=== PATIENT | male | born 1950 | race Caucasian/White ===

== ENCOUNTER → 2020-03-05 | Outpatient (CLI) | payer OTHER | END | disposition home or self-care (01) | LOC: RAH 10:00 | PROVIDERS: ATTEND Family Medicine | DX: M25.261 Flail joint, right knee (principal); M85.88 Other specified disorders of bone density and structure, other site; Z96.651 Presence of right artificial knee joint | CPT/HCPCS: 73700 ==

== ENCOUNTER → 2020-05-16 | Outpatient (CLI) | payer OTHER ==
[~2020-05-16] MED LIST: SILVER NITRATE APPLICATOR 1 SWAB TP ONE
== END | disposition home or self-care (01) ==
LOC: WHH 13:39
PROVIDERS: ATTEND Specialist
DX: L02.415 Cutaneous abscess of right lower limb (principal); I10 Essential (primary) hypertension; I48.91 Unspecified atrial fibrillation; E78.5 Hyperlipidemia, unspecified; M46.90 Unspecified inflammatory spondylopathy, site unspecified; K21.9 Gastro-esophageal reflux disease without esophagitis; Z87.891 Personal history of nicotine dependence; Z96.651 Presence of right artificial knee joint
CPT/HCPCS: 17250; 87070; 87077; 87186

== ENCOUNTER → 2020-05-30 | Outpatient (CLI) | payer OTHER | END | disposition home or self-care (01) | LOC: WHH 13:42 | PROVIDERS: ATTEND Specialist | DX: L02.415 Cutaneous abscess of right lower limb (principal); I10 Essential (primary) hypertension; I48.91 Unspecified atrial fibrillation; E78.5 Hyperlipidemia, unspecified; M46.90 Unspecified inflammatory spondylopathy, site unspecified; K21.9 Gastro-esophageal reflux disease without esophagitis; Z87.891 Personal history of nicotine dependence; Z96.651 Presence of right artificial knee joint | CPT/HCPCS: G0463 ==

== ENCOUNTER 2020-06-15 13:00 | Inpatient (IN) | payer OTHER ==
[~2020-06-15] VITALS: Ht 170.2 cm; Wt 71.4 kg
[2020-06-15 10:02] LABS: EOSINOPHILS % (AUTO) 2.8 % (0.0-8.0); HEMATOCRIT 35.1 % (42-54); LYMPHOCYTES % (AUTO) 22.7 % (21.0-51.0); MEAN CORPUSCULAR HEMOGLOBIN 23.6 pg (27.0-33.0); MEAN CORPUSCULAR HGB CONC 29.9 g/dL (32.0-36.0); MEAN CORPUSCULAR VOLUME 78.9 fL (79-99); MONOCYTES % (AUTO) 11.5 % (3.0-13.0); NEUTROPHILS % (AUTO) 61.5 % (40.0-77.0); PLATELET COUNT (AUTO) 313 K/uL (130-400); RED BLOOD CELL COUNT(AUTO) 4.45 MIL/uL (4.50-6.20); RED CELL DISTRIBUTION WIDTH 17.5 % (11.0-15.5); WHITE BLOOD COUNT (AUTO) 10.1 K/uL (4.8-10.8)
[2020-06-15 10:11] LABS: CREATININE 1.4 mg/dL (0.5-1.5); POTASSIUM 4.4 mmol/L (3.5-5.1)
[2020-06-15 13:32] VITALS: BP 189/107
[2020-06-15] MEDS ORDERED: APIX5TAB PO (15:56)
[2020-06-15] MEDS ORDERED: METO25TA6 PO (15:56)
[2020-06-15] MEDS ORDERED: LORA0.5T83 PO (16:04)
[2020-06-15] MEDS ORDERED: ISOS30TA92 PO (16:04)
[2020-06-15] MEDS ORDERED: DULO30CA52 PO (16:04)
[2020-06-15] MEDS ORDERED: NAPR-1023 PO (16:04)
[2020-06-15] MEDS ORDERED: OMEP40CA21 PO (16:04)
[2020-06-15] MEDS ORDERED: MULT-1203 PO (16:04)
[2020-06-15] MEDS ORDERED: TAMS-1 PO (16:04)
[2020-06-15] MEDS ORDERED: BUPR200T34 PO (16:04)
[2020-06-15] MEDS ORDERED: FERR-82 PO (16:04)
[2020-06-18] VITALS (24 sets, daily range): BP systolic 109–158; BP diastolic 71–103
[2020-06-18] MEDS ORDERED: CEFAZOLIN SODIUM 1 GM VIAL IVP SCH (05:00)
[2020-06-18] MEDS ORDERED: LACTATED RINGERS 1000ML 1,000 ML IV ONE (09:33)
[2020-06-18] MEDS ORDERED: 0.9%NACL 10ML VIAL ONE (09:45)
[2020-06-18] MEDS ORDERED: LIDOCAINE PF 100MG/5ML (2%) SYRINGE 5ML ONE (10:51)
[2020-06-18] MEDS ORDERED: MIDAZOLAM HCL 1 MG/ML 2ML VIAL ONE (10:51)
[2020-06-18] MEDS ORDERED: SUCCINYLCHOLINE CHLORIDE 20 MG/ML 10 ML VIAL ONE (10:51)
[2020-06-18] MEDS ORDERED: FENTANYL CITRATE PF 50 MCG/1 ML 2ML VIAL ONE (10:52)
[2020-06-18] MEDS ORDERED: ROCURONIUM 10MG/1ML SYR 10 MG/ML ML ONE (10:52)
[2020-06-18] MEDS ORDERED: PROPOFOL 10 MG/ML 20ML VIAL IV ONE (10:52)
[2020-06-18] MEDS ORDERED: VANCOMYCIN 1G/250ML KIT 250 ML IV ONE (11:29)
[2020-06-18] MEDS ORDERED: VANCOMYCIN 1G VIAL ONE ×3 (11:44→13:14)
[2020-06-18] MEDS ORDERED: GLYCOPYRROLATE 1 MG/5 ML SYRINGE ONE (12:16)
[2020-06-18] MEDS ORDERED: ONDANSETRON 4MG INJ ONE (12:17)
[2020-06-18] MEDS ORDERED: MEPERIDINE-PF 25 MG/ML SYG ONE ×2 (13:43→14:14)
[2020-06-18] MEDS ORDERED: MORPHINE 2 MG SYG ONE (14:00)
[2020-06-18 14:29] LABS: INR 1.12 (0.85-1.15); PROTHROMBIN TIME 12.1 SEC (9.6-11.6)
[2020-06-18] MEDS: 0.9%NACL 1000ML 1,000 ML IV SCH ×2 (14:30→22:31)
[2020-06-18] MEDS ORDERED: KETOROLAC 15MG/ML VIAL (15MG/ML) IV PRN (14:30)
[2020-06-18] MEDS ORDERED: OXYCODONE HCL 5 MG TAB PO PRN (14:30)
[2020-06-18] MEDS: ACETAMINOPHEN 500 MG TABLET PO SCH ×2 (14:30→22:30)
[2020-06-18] MEDS ORDERED: LIDOCAINE HCL-MPF 1% 2ML VIAL IV PRN (14:30)
[2020-06-18] MEDS ORDERED: ONDANSETRON 4MG INJ IVP PRN (14:30)
[2020-06-18] MEDS ORDERED: DiphenhydrAMINE HCL 50 MG/ML VIAL IVP PRN (14:30)
[2020-06-18] MEDS ORDERED: CALCIUM CARB 500MG PO PRN (14:30)
[2020-06-18] MEDS ORDERED: FERROUS FUMARATE 324 MG TABLET PO PRN (14:30)
[2020-06-18] MEDS ORDERED: POTASSIUM CHLORIDE 10% ELIXIR 20 MEQ/15 ML UDCUP PO PRN (14:30)
[2020-06-18] MEDS ORDERED: KCL 20 MEQ ERTAB PO PRN (14:30)
[2020-06-18] MEDS ORDERED: TRAMADOL HCL 50 MG TABLET PO PRN (14:30)
[2020-06-18] MEDS ORDERED: POTASSIUM CHLORIDE 20MEQ/100ML 100 ML IV PRN (14:30)
[2020-06-18] MEDS ORDERED: NAPROXEN 500 MG TABLET PO SCH (16:00)
[2020-06-18] MEDS ORDERED: VANCOMYCIN PROTOCOL PER PHARMACY IV SCH (18:00)
[2020-06-18] MEDS: OXYCODONE HCL 5 MG TAB PO PRN ×2 (18:05→23:30)
[2020-06-18] MEDS: VANCOMYCIN 1G/250ML KIT 250 ML IV SCH (20:52)
[2020-06-18] MEDS: PREGABALIN 25 MG CAP PO SCH (20:52)
[2020-06-18] MEDS: LORAZEPAM 0.5 MG TABLET PO SCH (20:54)
[2020-06-18] MEDS: METOPROLOL TARTRATE 25 MG TAB PO SCH (20:54)
[2020-06-18] MEDS ORDERED: APIXABAN 5 MG TABLET PO SCH (21:00)
[2020-06-18] MEDS: CELECOXIB 200 MG CAP PO SCH (21:26)
[2020-06-19] MEDS: OXYCODONE HCL 5 MG TAB PO PRN ×3 (03:45→19:43)
[2020-06-19 04:00] VITALS: BP 142/84
[2020-06-19] MEDS: ACETAMINOPHEN 500 MG TABLET PO SCH ×3 (05:41→22:30)
[2020-06-19 06:22] LABS: HEMATOCRIT 31.5 % (42-54); MEAN CORPUSCULAR HEMOGLOBIN 24.1 pg (27.0-33.0); MEAN CORPUSCULAR HGB CONC 31.1 g/dL (32.0-36.0); MEAN CORPUSCULAR VOLUME 77.6 fL (79-99); RED BLOOD CELL COUNT(AUTO) 4.06 MIL/uL (4.50-6.20); RED CELL DISTRIBUTION WIDTH 17.1 % (11.0-15.5); WHITE BLOOD COUNT (AUTO) 8.6 K/uL (4.8-10.8)
[2020-06-19 06:42] LABS: CREATININE 1.1 mg/dL (0.5-1.5); POTASSIUM 3.8 mmol/L (3.5-5.1)
[2020-06-19 08:22] VITALS: BP 145/80
[2020-06-19] MEDS ORDERED: NON-FORMULARY MEDICATION 1 EACH (Ferrous Sulfate (Iron) 325 MG) PO SCH (09:00)
[2020-06-19] MEDS ORDERED: TAMSULOSIN HCL 0.4 MG CAP.ER.24H PO SCH (09:00)
[2020-06-19] MEDS: METOPROLOL TARTRATE 25 MG TAB PO SCH ×2 (10:16→19:42)
[2020-06-19] MEDS: CELECOXIB 200 MG CAP PO SCH ×2 (10:16→19:41)
[2020-06-19] MEDS: PREGABALIN 25 MG CAP PO SCH ×2 (10:16→19:42)
[2020-06-19] MEDS: TAMSULOSIN HCL 0.4 MG CAP.ER.24H PO SCH (10:16)
[2020-06-19] MEDS: FAMOTIDINE 20MG TAB PO SCH (10:17)
[2020-06-19] MEDS: POLYETHYLENE GLYCOL 3350 17 GM POWD.PACK PO SCH (10:17)
[2020-06-19] MEDS: MULTIVITAMIN TABLET PO SCH (10:17)
[2020-06-19] MEDS: ISOSORBIDE MONO 30MG SR TAB PO SCH (10:22)
[2020-06-19] MEDS: DULOXETINE HCL 30 MG CAP PO SCH (10:26)
[2020-06-19] MEDS: BUPROPION HCL 150 MG TABLET.SA PO SCH (10:29)
[2020-06-19] MEDS: PANTOPRAZOLE 40 MG TAB DR PO SCH (10:29)
[2020-06-19] MEDS: ENOXAPARIN SODIUM 40 MG/0.4 ML SYRINGE SQ SCH (10:30)
[2020-06-19] MEDS: 0.9%NACL 1000ML 1,000 ML IV SCH (10:30)
[2020-06-19 12:18] VITALS: BP 129/78
[2020-06-19 16:40] VITALS: BP 125/79
[2020-06-19] MEDS: VANCOMYCIN 1G/250ML KIT 250 ML IV SCH (19:41)
[2020-06-19 20:00] VITALS: BP 146/87
[2020-06-19] MEDS: LORAZEPAM 0.5 MG TABLET PO SCH (21:15)
[2020-06-19 23:48] VITALS: BP 141/88
[2020-06-20 04:00] VITALS: BP 157/94
[2020-06-20] MEDS: ACETAMINOPHEN 500 MG TABLET PO SCH ×3 (05:05→21:53)
[2020-06-20 08:04] VITALS: BP 141/84
[2020-06-20] MEDS: PREGABALIN 25 MG CAP PO SCH ×2 (08:41→20:47)
[2020-06-20] MEDS: FAMOTIDINE 20MG TAB PO SCH (08:41)
[2020-06-20] MEDS: CELECOXIB 200 MG CAP PO SCH ×2 (08:41→20:47)
[2020-06-20] MEDS: DULOXETINE HCL 30 MG CAP PO SCH (08:41)
[2020-06-20] MEDS: BUPROPION HCL 150 MG TABLET.SA PO SCH (08:41)
[2020-06-20] MEDS: MULTIVITAMIN TABLET PO SCH (08:41)
[2020-06-20] MEDS: ISOSORBIDE MONO 30MG SR TAB PO SCH (08:42)
[2020-06-20] MEDS: ENOXAPARIN SODIUM 40 MG/0.4 ML SYRINGE SQ SCH (08:42)
[2020-06-20] MEDS: POLYETHYLENE GLYCOL 3350 17 GM POWD.PACK PO SCH (08:42)
[2020-06-20] MEDS: METOPROLOL TARTRATE 25 MG TAB PO SCH ×2 (08:42→20:47)
[2020-06-20] MEDS: TAMSULOSIN HCL 0.4 MG CAP.ER.24H PO SCH (08:42)
[2020-06-20] MEDS: PANTOPRAZOLE 40 MG TAB DR PO SCH (08:42)
[2020-06-20 11:18] VITALS: BP 137/81
[2020-06-20 15:58] VITALS: BP 126/79
[2020-06-20] MEDS: OXYCODONE HCL 5 MG TAB PO PRN (17:40)
[2020-06-20 19:30] VITALS: BP 154/90
[2020-06-20] MEDS: LORAZEPAM 0.5 MG TABLET PO SCH (20:47)
[2020-06-20] MEDS: VANCOMYCIN 1G/250ML KIT 250 ML IV SCH (20:47)
[2020-06-20] MEDS: RIFAMPIN 300 MG CAPSULE PO SCH (20:47)
[2020-06-20] MEDS: TEMAZEPAM 15 MG CAPSULE PO PRN (20:47)
[2020-06-20 23:38] VITALS: BP 144/67
[2020-06-21 04:08] VITALS: BP 155/89
[2020-06-21] MEDS: ACETAMINOPHEN 500 MG TABLET PO SCH ×3 (06:16→21:01)
[2020-06-21 08:40] VITALS: BP 151/89
[2020-06-21] MEDS: FAMOTIDINE 20MG TAB PO SCH (09:57)
[2020-06-21] MEDS: PREGABALIN 25 MG CAP PO SCH ×2 (09:57→19:57)
[2020-06-21] MEDS: BUPROPION HCL 150 MG TABLET.SA PO SCH (09:57)
[2020-06-21] MEDS: DULOXETINE HCL 30 MG CAP PO SCH (09:57)
[2020-06-21] MEDS: METOPROLOL TARTRATE 25 MG TAB PO SCH ×2 (09:57→19:57)
[2020-06-21] MEDS: TAMSULOSIN HCL 0.4 MG CAP.ER.24H PO SCH (09:57)
[2020-06-21] MEDS: PANTOPRAZOLE 40 MG TAB DR PO SCH (09:57)
[2020-06-21] MEDS: POLYETHYLENE GLYCOL 3350 17 GM POWD.PACK PO SCH (09:57)
[2020-06-21] MEDS: ISOSORBIDE MONO 30MG SR TAB PO SCH (09:57)
[2020-06-21] MEDS: MULTIVITAMIN TABLET PO SCH (09:57)
[2020-06-21] MEDS: RIFAMPIN 300 MG CAPSULE PO SCH ×2 (09:57→19:57)
[2020-06-21] MEDS: CELECOXIB 200 MG CAP PO SCH ×2 (09:57→19:57)
[2020-06-21] MEDS: ENOXAPARIN SODIUM 40 MG/0.4 ML SYRINGE SQ SCH (09:58)
[2020-06-21 11:11] VITALS: BP 145/79
[2020-06-21] MEDS ORDERED: BISACODYL 10 MG SUPP.RECT RC PRN (14:30)
[2020-06-21 16:32] VITALS: BP 125/74
[2020-06-21] MEDS: OXYCODONE HCL 5 MG TAB PO PRN (18:47)
[2020-06-21 19:51] VITALS: BP 148/86
[2020-06-21] MEDS: LORAZEPAM 0.5 MG TABLET PO SCH (19:57)
[2020-06-21] MEDS ORDERED: VANCOMYCIN 1G 1.5 GM in 0.9% NACL 250ML 250 ML IV ONE (20:45)
[2020-06-21] MEDS ORDERED: COMPOUND IV REFRIGERATED 1 EACH IVSOLN MISC PRN (20:45)
[2020-06-21] MEDS: TEMAZEPAM 15 MG CAPSULE PO PRN (21:00)
[2020-06-21] MEDS: VANCOMYCIN 1G/250ML KIT 250 ML IV SCH (21:00)
[2020-06-21 23:44] VITALS: BP 143/81
[2020-06-22 04:00] VITALS: BP 120/74
[2020-06-22] MEDS: ACETAMINOPHEN 500 MG TABLET PO SCH ×3 (05:33→21:59)
[2020-06-22] MEDS ORDERED: VANCOMYCIN 500MG+NS 100ML 100 ML IV SCH (06:00)
[2020-06-22 08:00] VITALS: BP 147/85
[2020-06-22] MEDS: POLYETHYLENE GLYCOL 3350 17 GM POWD.PACK PO SCH (09:00)
[2020-06-22] MEDS: MULTIVITAMIN TABLET PO SCH (09:04)
[2020-06-22] MEDS: RIFAMPIN 300 MG CAPSULE PO SCH ×2 (09:04→20:14)
[2020-06-22] MEDS: ISOSORBIDE MONO 30MG SR TAB PO SCH (09:05)
[2020-06-22] MEDS: DULOXETINE HCL 30 MG CAP PO SCH (09:05)
[2020-06-22] MEDS: PANTOPRAZOLE 40 MG TAB DR PO SCH (09:05)
[2020-06-22] MEDS: TAMSULOSIN HCL 0.4 MG CAP.ER.24H PO SCH (09:05)
[2020-06-22] MEDS: BUPROPION HCL 150 MG TABLET.SA PO SCH (09:05)
[2020-06-22] MEDS: CELECOXIB 200 MG CAP PO SCH ×2 (09:05→20:14)
[2020-06-22] MEDS: PREGABALIN 25 MG CAP PO SCH ×2 (09:05→20:14)
[2020-06-22] MEDS: FAMOTIDINE 20MG TAB PO SCH (09:05)
[2020-06-22] MEDS: METOPROLOL TARTRATE 25 MG TAB PO SCH ×2 (09:06→20:14)
[2020-06-22] MEDS: ENOXAPARIN SODIUM 40 MG/0.4 ML SYRINGE SQ SCH (09:06)
[2020-06-22 12:05] VITALS: BP 138/84
[2020-06-22 16:00] VITALS: BP 146/86
[2020-06-22] MEDS: OXYCODONE HCL 5 MG TAB PO PRN (17:18)
[2020-06-22] MEDS: CEFAZOLIN SODIUM 1 GM VIAL IVP SCH (18:19)
[2020-06-22 19:36] VITALS: BP 169/103
[2020-06-22] MEDS: LORAZEPAM 0.5 MG TABLET PO SCH (20:14)
[2020-06-22 23:24] VITALS: BP 168/99
[2020-06-23] MEDS: CEFAZOLIN SODIUM 1 GM VIAL IVP SCH ×3 (01:56→18:24)
[2020-06-23 04:10] VITALS: BP 148/90
[2020-06-23] MEDS: ACETAMINOPHEN 500 MG TABLET PO SCH ×3 (05:23→22:21)
[2020-06-23] MEDS: POLYETHYLENE GLYCOL 3350 17 GM POWD.PACK PO SCH (09:00)
[2020-06-23] MEDS: FAMOTIDINE 20MG TAB PO SCH (09:25)
[2020-06-23] MEDS: CELECOXIB 200 MG CAP PO SCH ×2 (09:25→20:48)
[2020-06-23] MEDS: TAMSULOSIN HCL 0.4 MG CAP.ER.24H PO SCH (09:25)
[2020-06-23] MEDS: RIFAMPIN 300 MG CAPSULE PO SCH ×2 (09:25→20:49)
[2020-06-23] MEDS: DULOXETINE HCL 30 MG CAP PO SCH (09:25)
[2020-06-23] MEDS: BUPROPION HCL 150 MG TABLET.SA PO SCH (09:25)
[2020-06-23] MEDS: PANTOPRAZOLE 40 MG TAB DR PO SCH (09:26)
[2020-06-23] MEDS: MULTIVITAMIN TABLET PO SCH (09:26)
[2020-06-23] MEDS: ISOSORBIDE MONO 30MG SR TAB PO SCH (09:26)
[2020-06-23] MEDS: METOPROLOL TARTRATE 25 MG TAB PO SCH ×2 (09:26→20:49)
[2020-06-23] MEDS: PREGABALIN 25 MG CAP PO SCH ×2 (09:26→20:49)
[2020-06-23] MEDS: ENOXAPARIN SODIUM 40 MG/0.4 ML SYRINGE SQ SCH (09:27)
[2020-06-23 10:18] VITALS: BP 176/96
[2020-06-23 12:20] VITALS: BP 163/92
[2020-06-23 17:26] VITALS: BP 159/95
[2020-06-23 20:20] VITALS: BP 168/90
[2020-06-23] MEDS: LORAZEPAM 0.5 MG TABLET PO SCH (20:48)
[2020-06-24 00:20] VITALS: BP 148/88
[2020-06-24] MEDS: CEFAZOLIN SODIUM 1 GM VIAL IVP SCH ×3 (02:13→17:26)
[2020-06-24 04:20] VITALS: BP 154/85
[2020-06-24 05:32] LABS: HEMATOCRIT 30.4 % (42-54); MEAN CORPUSCULAR HEMOGLOBIN 24.4 pg (27.0-33.0); MEAN CORPUSCULAR HGB CONC 31.6 g/dL (32.0-36.0); MEAN CORPUSCULAR VOLUME 77.4 fL (79-99); PLATELET COUNT (AUTO) 276 K/uL (130-400); RED BLOOD CELL COUNT(AUTO) 3.93 MIL/uL (4.50-6.20); RED CELL DISTRIBUTION WIDTH 16.4 % (11.0-15.5); WHITE BLOOD COUNT (AUTO) 6.7 K/uL (4.8-10.8)
[2020-06-24 05:46] LABS: INR 1.08 (0.85-1.15); PROTHROMBIN TIME 11.7 SEC (9.6-11.6)
[2020-06-24 05:47] LABS: CREATININE 1.2 mg/dL (0.5-1.5); PARTIAL THROMBOPLASTIN TIME 35.4 SEC (26.3-35.5); POTASSIUM 3.8 mmol/L (3.5-5.1)
[2020-06-24 06:33] LABS: BAND NEUTROPHILS % (MANUAL) 1 % (0-2); BASOPHILS % (MANUAL) 4 % (0-2); EOSINOPHILS % (MANUAL) 6 % (1-6); LYMPHOCYTES % (MANUAL) 27 % (22-44); MAN.DIFF COMMENT-IMPRESSION MANUAL DIFFERENTIAL; MONOCYTES % (MANUAL) 5 % (2-9); REACTIVE LYMPHOCYTES 2 % (0-0); SEGMENTED NEUTROPHILS % 55 % (40-70)
[2020-06-24] MEDS: ACETAMINOPHEN 500 MG TABLET PO SCH ×3 (07:22→22:30)
[2020-06-24 08:33] VITALS: BP 162/96
[2020-06-24] MEDS: ISOSORBIDE MONO 30MG SR TAB PO SCH (08:38)
[2020-06-24] MEDS: METOPROLOL TARTRATE 25 MG TAB PO SCH ×2 (08:38→20:55)
[2020-06-24] MEDS: CELECOXIB 200 MG CAP PO SCH ×2 (08:38→20:54)
[2020-06-24] MEDS: BUPROPION HCL 150 MG TABLET.SA PO SCH (08:38)
[2020-06-24] MEDS: PANTOPRAZOLE 40 MG TAB DR PO SCH (08:38)
[2020-06-24] MEDS: PREGABALIN 25 MG CAP PO SCH ×2 (08:39→20:55)
[2020-06-24] MEDS: MULTIVITAMIN TABLET PO SCH (08:39)
[2020-06-24] MEDS: TAMSULOSIN HCL 0.4 MG CAP.ER.24H PO SCH (08:39)
[2020-06-24] MEDS: DULOXETINE HCL 30 MG CAP PO SCH (08:39)
[2020-06-24] MEDS: RIFAMPIN 300 MG CAPSULE PO SCH ×2 (08:39→20:55)
[2020-06-24] MEDS: POLYETHYLENE GLYCOL 3350 17 GM POWD.PACK PO SCH (08:39)
[2020-06-24] MEDS: FAMOTIDINE 20MG TAB PO SCH (08:40)
[2020-06-24] MEDS: ENOXAPARIN SODIUM 40 MG/0.4 ML SYRINGE SQ SCH (08:40)
[2020-06-24 20:00] VITALS: BP 162/92
[2020-06-24] MEDS: LORAZEPAM 0.5 MG TABLET PO SCH (20:55)
[2020-06-24 23:34] VITALS: BP 159/93
[2020-06-25] VITALS (24 sets, daily range): BP systolic 67–164; BP diastolic 30–99
[2020-06-25] MEDS: CEFAZOLIN SODIUM 1 GM VIAL IVP SCH ×4 (02:23→18:00)
[2020-06-25] MEDS: ACETAMINOPHEN 500 MG TABLET PO SCH ×3 (05:26→17:45)
[2020-06-25] MEDS: PANTOPRAZOLE 40 MG TAB DR PO SCH (09:00)
[2020-06-25] MEDS: MULTIVITAMIN TABLET PO SCH (09:00)
[2020-06-25] MEDS: DULOXETINE HCL 30 MG CAP PO SCH (09:00)
[2020-06-25] MEDS: FAMOTIDINE 20MG TAB PO SCH (09:00)
[2020-06-25] MEDS: POLYETHYLENE GLYCOL 3350 17 GM POWD.PACK PO SCH (09:00)
[2020-06-25] MEDS: PREGABALIN 25 MG CAP PO SCH ×2 (09:00→20:48)
[2020-06-25] MEDS: BUPROPION HCL 150 MG TABLET.SA PO SCH (09:00)
[2020-06-25] MEDS: CELECOXIB 200 MG CAP PO SCH ×2 (09:00→20:48)
[2020-06-25] MEDS: ISOSORBIDE MONO 30MG SR TAB PO SCH (10:18)
[2020-06-25] MEDS: RIFAMPIN 300 MG CAPSULE PO SCH ×2 (10:18→20:48)
[2020-06-25] MEDS: METOPROLOL TARTRATE 25 MG TAB PO SCH ×2 (10:18→20:48)
[2020-06-25] MEDS: TAMSULOSIN HCL 0.4 MG CAP.ER.24H PO SCH (10:18)
[2020-06-25] MEDS ORDERED: LACTATED RINGERS 1000ML 1,000 ML IV ONE (10:29)
[2020-06-25] MEDS ORDERED: CEFAZOLIN SODIUM 1 GM VIAL ONE ×3 (10:55→16:28)
[2020-06-25] MEDS ORDERED: VANCOMYCIN 1G VIAL ONE (10:55)
[2020-06-25] MEDS ORDERED: LIDOCAINE HCL-MPF 1% 5ML AMP IJ ONE (12:25)
[2020-06-25] MEDS ORDERED: PROPOFOL 10 MG/ML 20ML VIAL IV ONE ×2 (12:25→17:03)
[2020-06-25] MEDS ORDERED: ROCURONIUM 10MG/1ML SYR 10 MG/ML ML ONE ×3 (12:25→15:37)
[2020-06-25] MEDS ORDERED: MIDAZOLAM HCL 1 MG/ML 2ML VIAL ONE (12:25)
[2020-06-25] MEDS ORDERED: FENTANYL CITRATE PF 50 MCG/1 ML 2ML VIAL ONE ×2 (12:26→13:28)
[2020-06-25] MEDS ORDERED: EPHEDRINE SULFATE 50 MG/ML AMPULE ONE ×3 (13:07→17:59)
[2020-06-25] MEDS ORDERED: NITROGLYCERIN 50MG/D5W 250ML 1 BOT ONE (13:53)
[2020-06-25] MEDS ORDERED: ENALAPRILAT DIHYDRATE 1.25MG/ML 1ML VIAL IV ONE (14:38)
[2020-06-25] MEDS ORDERED: PHENYLEPHRINE HCL 10 MG/ML 1ML VIAL IV ONE (16:15)
[2020-06-25] MEDS ORDERED: ALBUMIN (HUMAN) 5% 250 ML IV ONE (16:31)
[2020-06-25 16:32] LABS: HEMATOCRIT 31.3 % (42-54)
[2020-06-25] MEDS ORDERED: ROPIVACAINE 0.5% 5MG/ML 30ML IJ ONE (17:22)
[2020-06-25] MEDS ORDERED: POTASSIUM CHLORIDE 10% ELIXIR 20 MEQ/15 ML UDCUP PO PRN (17:45)
[2020-06-25] MEDS ORDERED: OXYCODONE HCL 5 MG TAB PO PRN (17:45)
[2020-06-25] MEDS: 0.9%NACL 1000ML 1,000 ML IV SCH ×3 (17:45→20:49)
[2020-06-25] MEDS ORDERED: DIPHENHYDRAMINE HCL 25 MG CAPSULE PO PRN (17:45)
[2020-06-25] MEDS ORDERED: KCL 20 MEQ ERTAB PO PRN (17:45)
[2020-06-25] MEDS ORDERED: CALCIUM CARB 500MG PO PRN (17:45)
[2020-06-25] MEDS ORDERED: DiphenhydrAMINE HCL 50 MG/ML VIAL IVP PRN (17:45)
[2020-06-25] MEDS ORDERED: POTASSIUM CHLORIDE 20MEQ/100ML 100 ML IV PRN (17:45)
[2020-06-25] MEDS ORDERED: LIDOCAINE HCL-MPF 1% 2ML VIAL IV PRN (17:45)
[2020-06-25] MEDS ORDERED: TRAMADOL HCL 50 MG TABLET PO PRN (17:45)
[2020-06-25] MEDS ORDERED: METOCLOPRAMIDE 10 MG/2 ML VIAL ONE (18:07)
[2020-06-25] MEDS ORDERED: MEPERIDINE-PF 25 MG/ML SYG ONE (18:23)
[2020-06-25] MEDS: KETOROLAC 15MG/ML VIAL (15MG/ML) IV PRN (19:44)
[2020-06-25 19:57] LABS: CREATINE KINASE, TOTAL 43 U/L (21-232); MYOGLOBIN 67 ng/mL (10-92); TROPONIN I < 0.04 ng/mL (0.00-0.06)
[2020-06-25] MEDS: LORAZEPAM 0.5 MG TABLET PO SCH ×2 (20:48→21:00)
[2020-06-25] MEDS ORDERED: FAMOTIDINE 20MG TAB PO SCH (21:00)
[2020-06-25] MEDS ORDERED: CELECOXIB 200 MG CAP PO SCH (21:00)
[2020-06-25] MEDS: OXYCODONE HCL 5 MG TAB PO PRN (23:44)
[2020-06-26] VITALS (7 sets, daily range): BP systolic 109–148; BP diastolic 65–93
[2020-06-26] MEDS: CEFAZOLIN SODIUM 1 GM VIAL IVP SCH ×3 (00:49→17:54)
[2020-06-26] MEDS: ACETAMINOPHEN 500 MG TABLET PO SCH ×3 (01:45→17:52)
[2020-06-26] MEDS: KETOROLAC 15MG/ML VIAL (15MG/ML) IV PRN ×3 (03:20→22:40)
[2020-06-26 05:42] LABS: HEMATOCRIT 25.3 % (42-54); MEAN CORPUSCULAR HEMOGLOBIN 23.7 pg (27.0-33.0); MEAN CORPUSCULAR HGB CONC 30.4 g/dL (32.0-36.0); MEAN CORPUSCULAR VOLUME 77.8 fL (79-99); RED BLOOD CELL COUNT(AUTO) 3.25 MIL/uL (4.50-6.20); RED CELL DISTRIBUTION WIDTH 16.4 % (11.0-15.5); WHITE BLOOD COUNT (AUTO) 9.7 K/uL (4.8-10.8)
[2020-06-26 05:56] LABS: CREATININE 1.2 mg/dL (0.5-1.5); POTASSIUM 3.8 mmol/L (3.5-5.1)
[2020-06-26] MEDS: POLYETHYLENE GLYCOL 3350 17 GM POWD.PACK PO SCH ×2 (09:00→10:55)
[2020-06-26] MEDS: APIXABAN 5 MG TABLET PO SCH ×2 (10:53→21:09)
[2020-06-26] MEDS: PREGABALIN 25 MG CAP PO SCH ×2 (10:53→21:10)
[2020-06-26] MEDS: RIFAMPIN 300 MG CAPSULE PO SCH ×2 (10:53→21:09)
[2020-06-26] MEDS: BUPROPION HCL 150 MG TABLET.SA PO SCH (10:54)
[2020-06-26] MEDS: ISOSORBIDE MONO 30MG SR TAB PO SCH (10:54)
[2020-06-26] MEDS: CELECOXIB 200 MG CAP PO SCH ×2 (10:54→21:10)
[2020-06-26] MEDS: TAMSULOSIN HCL 0.4 MG CAP.ER.24H PO SCH (10:54)
[2020-06-26] MEDS: PANTOPRAZOLE 40 MG TAB DR PO SCH (10:55)
[2020-06-26] MEDS: MULTIVITAMIN TABLET PO SCH (10:55)
[2020-06-26] MEDS: FAMOTIDINE 20MG TAB PO SCH (10:55)
[2020-06-26] MEDS: METOPROLOL TARTRATE 25 MG TAB PO SCH ×2 (10:55→21:09)
[2020-06-26] MEDS: DULOXETINE HCL 30 MG CAP PO SCH (10:56)
[2020-06-26] MEDS: OXYCODONE HCL 5 MG TAB PO PRN ×2 (10:57→17:56)
[2020-06-26] MEDS: 0.9%NACL 1000ML 1,000 ML IV SCH (12:54)
[2020-06-26] MEDS ORDERED: FUROSEMIDE 20MG VIAL ONE (17:53)
[2020-06-26] MEDS ORDERED: FUROSEMIDE 20MG VIAL IV SCH ×3 (19:00→23:59)
[2020-06-26] MEDS: LORAZEPAM 0.5 MG TABLET PO SCH (21:09)
[2020-06-27] MEDS: ACETAMINOPHEN 500 MG TABLET PO SCH ×3 (01:45→17:09)
[2020-06-27] MEDS: CEFAZOLIN SODIUM 1 GM VIAL IVP SCH ×3 (02:33→17:06)
[2020-06-27 03:42] VITALS: BP 148/80
[2020-06-27] MEDS: KETOROLAC 15MG/ML VIAL (15MG/ML) IV PRN ×2 (05:53→13:22)
[2020-06-27 05:57] LABS: MEAN CORPUSCULAR HEMOGLOBIN 25.1 pg (27.0-33.0); MEAN CORPUSCULAR HGB CONC 31.4 g/dL (32.0-36.0); MEAN CORPUSCULAR VOLUME 79.8 fL (79-99); RED BLOOD CELL COUNT(AUTO) 3.51 MIL/uL (4.50-6.20); RED CELL DISTRIBUTION WIDTH 16.1 % (11.0-15.5); WHITE BLOOD COUNT (AUTO) 9.9 K/uL (4.8-10.8)
[2020-06-27 06:10] LABS: CREATININE 1.3 mg/dL (0.5-1.5); POTASSIUM 3.5 mmol/L (3.5-5.1)
[2020-06-27 08:00] VITALS: BP 150/51
[2020-06-27] MEDS: POLYETHYLENE GLYCOL 3350 17 GM POWD.PACK PO SCH (09:00)
[2020-06-27] MEDS: MULTIVITAMIN TABLET PO SCH (09:26)
[2020-06-27] MEDS: RIFAMPIN 300 MG CAPSULE PO SCH ×2 (09:26→20:33)
[2020-06-27] MEDS: METOPROLOL TARTRATE 25 MG TAB PO SCH ×2 (09:26→20:33)
[2020-06-27] MEDS: FAMOTIDINE 20MG TAB PO SCH (09:26)
[2020-06-27] MEDS: APIXABAN 5 MG TABLET PO SCH ×2 (09:26→20:33)
[2020-06-27] MEDS: TAMSULOSIN HCL 0.4 MG CAP.ER.24H PO SCH (09:26)
[2020-06-27] MEDS: OXYCODONE HCL 5 MG TAB PO PRN ×3 (09:26→23:48)
[2020-06-27] MEDS: DULOXETINE HCL 30 MG CAP PO SCH (09:26)
[2020-06-27] MEDS: CELECOXIB 200 MG CAP PO SCH ×2 (09:27→20:33)
[2020-06-27] MEDS: PREGABALIN 25 MG CAP PO SCH ×2 (09:27→20:35)
[2020-06-27] MEDS: ISOSORBIDE MONO 30MG SR TAB PO SCH (09:27)
[2020-06-27] MEDS: BUPROPION HCL 150 MG TABLET.SA PO SCH (09:27)
[2020-06-27] MEDS: PANTOPRAZOLE 40 MG TAB DR PO SCH (09:35)
[2020-06-27 11:35] VITALS: BP 157/88
[2020-06-27 16:00] VITALS: BP 145/87
[2020-06-27 20:00] VITALS: BP 150/101
[2020-06-28] VITALS: BP 141/90
[2020-06-28] MEDS: LORAZEPAM 0.5 MG TABLET PO SCH (01:17)
[2020-06-28] MEDS: CEFAZOLIN SODIUM 1 GM VIAL IVP SCH ×2 (01:18→10:04)
[2020-06-28] MEDS: ACETAMINOPHEN 500 MG TABLET PO SCH ×2 (01:20→10:04)
[2020-06-28 04:00] VITALS: BP 173/94
[2020-06-28 05:28] LABS: HEMATOCRIT 25.9 % (42-54); MEAN CORPUSCULAR HGB CONC 31.3 g/dL (32.0-36.0); MEAN CORPUSCULAR VOLUME 79.9 fL (79-99); RED BLOOD CELL COUNT(AUTO) 3.24 MIL/uL (4.50-6.20); RED CELL DISTRIBUTION WIDTH 16.6 % (11.0-15.5); WHITE BLOOD COUNT (AUTO) 8.7 K/uL (4.8-10.8)
[2020-06-28 05:33] LABS: POTASSIUM 3.5 mmol/L (3.5-5.1)
[2020-06-28 07:00] VITALS: BP 144/92
[2020-06-28] MEDS ORDERED: HYDR-4060 PO (08:41)
[2020-06-28] MEDS ORDERED: FERR-82 PO (08:41)
[2020-06-28] MEDS: KETOROLAC 15MG/ML VIAL (15MG/ML) IV PRN (09:09)
[2020-06-28] MEDS: PANTOPRAZOLE 40 MG TAB DR PO SCH (10:00)
[2020-06-28] MEDS: BUPROPION HCL 150 MG TABLET.SA PO SCH (10:00)
[2020-06-28] MEDS: PREGABALIN 25 MG CAP PO SCH (10:01)
[2020-06-28] MEDS: DULOXETINE HCL 30 MG CAP PO SCH (10:01)
[2020-06-28] MEDS: APIXABAN 5 MG TABLET PO SCH (10:01)
[2020-06-28] MEDS: MULTIVITAMIN TABLET PO SCH (10:02)
[2020-06-28] MEDS: ISOSORBIDE MONO 30MG SR TAB PO SCH (10:02)
[2020-06-28] MEDS: FAMOTIDINE 20MG TAB PO SCH (10:02)
[2020-06-28] MEDS: CELECOXIB 200 MG CAP PO SCH (10:03)
[2020-06-28] MEDS: METOPROLOL TARTRATE 25 MG TAB PO SCH (10:03)
[2020-06-28] MEDS: POLYETHYLENE GLYCOL 3350 17 GM POWD.PACK PO SCH (10:05)
[2020-06-28] MEDS: TAMSULOSIN HCL 0.4 MG CAP.ER.24H PO SCH (10:27)
[2020-06-28] MEDS: RIFAMPIN 300 MG CAPSULE PO SCH (10:27)
[2020-06-28] MEDS: OXYCODONE HCL 5 MG TAB PO PRN (14:15)
== END 2020-06-28 16:30 | disposition home health service (06) | DRG 464 ==
LOC: OBSVTOIN 06-18 09:05 → DAHIP 06-18 09:05 → INTOOBSV 06-18 09:05 → EDSTATUS 06-18 09:14 → 3BH 06-18 15:21
PROVIDERS: ADMIT Orthopaedic Surgery; ATTEND Orthopaedic Surgery
PROC: 0JBN0ZZ Excision of Right Lower Leg Subcutaneous Tissue and Fascia, Open Approach (ICD-10-PCS; 2020-06-18 11:40)
PROC: 0SPC09Z Removal of Liner from Right Knee Joint, Open Approach (ICD-10-PCS; 2020-06-25)
PROC: 0SRC0EZ Replacement of Right Knee Joint with Articulating Spacer, Open Approach (ICD-10-PCS; 2020-06-25 12:21)
PROC: 0SPC0JZ Removal of Synthetic Substitute from Right Knee Joint, Open Approach (ICD-10-PCS; 2020-06-25 12:21)
PROC: 30233N1 Transfusion of Nonautologous Red Blood Cells into Peripheral Vein, Percutaneous Approach (ICD-10-PCS; principal; 2020-06-26)
DX: T84.53XA Infection and inflammatory reaction due to internal right knee prosthesis, initial encounter (principal); I50.22 Chronic systolic (congestive) heart failure; D62 Acute posthemorrhagic anemia; I50.20 Unspecified systolic (congestive) heart failure; Z16.29 Resistance to other single specified antibiotic; Z96.651 Presence of right artificial knee joint; B95.61 Methicillin susceptible Staphylococcus aureus infection as the cause of diseases classified elsewhere; E78.5 Hyperlipidemia, unspecified; F43.10 Post-traumatic stress disorder, unspecified; G89.29 Other chronic pain; I11.0 Hypertensive heart disease with heart failure; I25.10 Atherosclerotic heart disease of native coronary artery without angina pectoris; I48.0 Paroxysmal atrial fibrillation; M19.90 Unspecified osteoarthritis, unspecified site; N40.0 Benign prostatic hyperplasia without lower urinary tract symptoms; Z96.653 Presence of artificial knee joint, bilateral; K21.9 Gastro-esophageal reflux disease without esophagitis; Z20.822 Contact with and (suspected) exposure to COVID-19; Y83.8 Other surgical procedures as the cause of abnormal reaction of the patient, or of later complication, without mention of misadventure at the time of the procedure; Y92.89 Other specified places as the place of occurrence of the external cause
CPT/HCPCS: 36415; 36430; 80048; 80202; 82550; 82948; 83874; 84484; 85014; 85018; 85025; 85027; 85610; 85730; 86850; 86900; 86901; 86923; 87070; 87076; 87077; 87186; 87205; 88305; 93005; 97039; C1894; G0378; J0330; J0690; J1650; J1885; J1940; J2001; J2175; J2250; J2370; J2405; J2704; J2765; J2795; J3010; J3370; J3490; J7030; J7050; J7120; P9016; P9045; U0003

== ENCOUNTER 2020-08-16 09:00 | Inpatient (IN) | payer OTHER ==
[~2020-08-16] VITALS: Ht 171.4 cm; Wt 68.0 kg
[~2020-08-16 09:00] MED LIST changes: +APIX5TAB PO; +BUPR200T34 PO; +DULO30CA52 PO; +FERR-82 PO; +ISOS30TA92 PO; +LORA0.5T83 PO; +MULT-1203 PO; -SILVER NITRATE APPLICATOR 1 SWAB TP ONE; +TAMS-1 PO
[2020-08-16 10:18] LABS: APPEARANCE,URINE Clear (CLEAR); BILIRUBIN,URINE Negative (NEGATIVE); COLOR,URINE Yellow (YELLOW); GLUCOSE, URINE (UA) Negative (NEGATIVE); KETONES,URINE Negative (NEGATIVE); LEUKOCYTE ESTERASE ,URINE Moderate (NEGATIVE); NITRATE,URINE Negative (NEGATIVE); OCCULT BLOOD,URINE Trace (NEGATIVE); PROTEIN,URINE Negative (NEGATIVE); UROBILINOGEN,URINE 0.2 mg/dL (0.2-1.0)
[2020-08-16 10:32] LABS: BACTERIA,URINE Rare /HPF (None Seen); RBC,URINE 0-1 /HPF (0-1); SQUAMOUS EPITHELIAL CELL,UR Rare /HPF (0-2); WBC,URINE 0-1 /HPF (0-1)
[2020-08-16 10:39] LABS: EOSINOPHILS % (AUTO) 5.3 % (0.0-8.0); HEMATOCRIT 38.9 % (42-54); LYMPHOCYTES % (AUTO) 27.7 % (21.0-51.0); MEAN CORPUSCULAR HEMOGLOBIN 26.8 pg (27.0-33.0); MEAN CORPUSCULAR HGB CONC 30.8 g/dL (32.0-36.0); MEAN CORPUSCULAR VOLUME 86.8 fL (79-99); MONOCYTES % (AUTO) 10.1 % (3.0-13.0); NEUTROPHILS % (AUTO) 55.6 % (40.0-77.0); PLATELET COUNT (AUTO) 249 K/uL (130-400); RED BLOOD CELL COUNT(AUTO) 4.48 MIL/uL (4.50-6.20); RED CELL DISTRIBUTION WIDTH 19.5 % (11.0-15.5); WHITE BLOOD COUNT (AUTO) 7.1 K/uL (4.8-10.8)
[2020-08-16 10:47] LABS: INR 1.05 (0.85-1.15); PROTHROMBIN TIME 11.4 SEC (9.6-11.6)
[2020-08-16 10:48] LABS: CREATININE 1.2 mg/dL (0.5-1.5); POTASSIUM 4.2 mmol/L (3.5-5.1)
[2020-08-17] MEDS ORDERED: NAPR-1023 PO (15:07)
[2020-08-17] MEDS ORDERED: AMLO-258 PO (15:11)
[2020-08-17 15:38] VITALS: BP 135/89
[2020-08-20] VITALS (23 sets, daily range): BP systolic 104–146; BP diastolic 63–95
[2020-08-20] MEDS ORDERED: LACTATED RINGERS 1000ML 1,000 ML IV ONE (09:52)
[2020-08-20] MEDS: CEFAZOLIN SODIUM 1 GM VIAL ONE ×2 (10:04→15:10)
[2020-08-20] MEDS ORDERED: CELECOXIB 200 MG CAP ONE (13:11)
[2020-08-20] MEDS ORDERED: METOCLOPRAMIDE 10 MG/2 ML VIAL ONE (13:11)
[2020-08-20] MEDS ORDERED: ACETAMINOPHEN 500 MG TABLET ONE (13:11)
[2020-08-20] MEDS ORDERED: ROCURONIUM 10MG/1ML SYR 10 MG/ML ML ONE ×2 (13:30→15:23)
[2020-08-20] MEDS ORDERED: LIDOCAINE PF 100MG/5ML (2%) SYRINGE 5ML ONE (13:30)
[2020-08-20] MEDS ORDERED: PROPOFOL 10 MG/ML 20ML VIAL IV ONE (13:30)
[2020-08-20] MEDS ORDERED: SUCCINYLCHOLINE CHLORIDE 20 MG/ML 10 ML VIAL ONE (13:30)
[2020-08-20] MEDS ORDERED: ROPIVACAINE 0.5% 5MG/ML 30ML IJ ONE (13:33)
[2020-08-20] MEDS ORDERED: MIDAZOLAM HCL 1 MG/ML 2ML VIAL ONE (14:42)
[2020-08-20] MEDS ORDERED: DEXAMETHASONE SOD PHOSPHATE 10MG/ML 1ML VIAL ONE (14:49)
[2020-08-20] MEDS ORDERED: FENTANYL CITRATE PF 50 MCG/1 ML 2ML VIAL ONE ×2 (14:49→16:31)
[2020-08-20] MEDS ORDERED: CEFAZOLIN SODIUM 1 GM VIAL ONE (14:53)
[2020-08-20] MEDS ORDERED: EPHEDRINE SULFATE 50 MG/ML AMPULE ONE ×2 (15:29→18:21)
[2020-08-20] MEDS ORDERED: ONDANSETRON 4MG INJ ONE ×2 (15:35→18:47)
[2020-08-20] MEDS ORDERED: VANCOMYCIN 1G VIAL ONE (17:06)
[2020-08-20] MEDS ORDERED: MEPERIDINE-PF 25 MG/ML SYG ONE ×3 (18:03→19:52)
[2020-08-20] MEDS ORDERED: GLYCOPYRROLATE 1 MG/5 ML SYRINGE ONE (18:47)
[2020-08-20] MEDS ORDERED: NEOSTIGMINE 5MG/5ML SYR IV ONE (18:47)
[2020-08-20] MEDS ORDERED: TRANEXAMIC ACID 1000MG/10ML ONE (18:51)
[2020-08-20] MEDS ORDERED: CALCIUM CARB 500MG PO PRN (19:00)
[2020-08-20] MEDS ORDERED: ONDANSETRON 4MG INJ IVP PRN (19:00)
[2020-08-20] MEDS ORDERED: DiphenhydrAMINE HCL 50 MG/ML VIAL IVP PRN (19:00)
[2020-08-20] MEDS ORDERED: FERROUS FUMARATE 324 MG TABLET PO PRN (19:00)
[2020-08-20] MEDS ORDERED: POTASSIUM CHLORIDE 20MEQ/100ML 100 ML IV PRN (19:00)
[2020-08-20] MEDS ORDERED: OXYCODONE HCL 5 MG TAB PO PRN (19:00)
[2020-08-20] MEDS ORDERED: LIDOCAINE HCL-MPF 1% 2ML VIAL IV PRN (19:00)
[2020-08-20] MEDS ORDERED: KCL 20 MEQ ERTAB PO PRN (19:00)
[2020-08-20] MEDS ORDERED: POTASSIUM CHLORIDE 10% ELIXIR 20 MEQ/15 ML UDCUP PO PRN (19:00)
[2020-08-20] MEDS ORDERED: TRAMADOL HCL 50 MG TABLET PO PRN (19:00)
[2020-08-20] MEDS: ACETAMINOPHEN 500 MG TABLET PO SCH (21:09)
[2020-08-20] MEDS: FAMOTIDINE 20MG TAB PO SCH (21:09)
[2020-08-20] MEDS: OXYCODONE HCL 5 MG TAB PO PRN (21:10)
[2020-08-20] MEDS: CELECOXIB 200 MG CAP PO SCH (21:11)
[2020-08-20] MEDS: PREGABALIN 25 MG CAP PO SCH (21:11)
[2020-08-20] MEDS: KETOROLAC 15MG/ML VIAL (15MG/ML) IV PRN (22:21)
[2020-08-21] VITALS (8 sets, daily range): BP systolic 131–148; BP diastolic 80–90
[2020-08-21 00:13] LABS: APPEARANCE BODY FLUID BLOODY (CLEAR); COLOR,BODY FLUID ORANGE (LT YELLOW); SPECIMENTYPE,BODY FLUID SYNOVIAL; TOTAL VOLUME,BODY FLUID 10 mL
[2020-08-21 00:17] LABS: BODY FLUID WBC 935 /cu. mm.
[2020-08-21 00:18] LABS: BODY FLUID RBC 8156 /cu. mm.
[2020-08-21 00:20] LABS: BF EOSINOPHIL 1 %
[2020-08-21 00:22] LABS: BF LYMPHOCYTE 5 %
[2020-08-21 00:23] LABS: BF MONOCYTE 18 %
[2020-08-21] MEDS ORDERED: 0.9%NACL 1000ML 1,000 ML IV PRN (03:00)
[2020-08-21] MEDS ORDERED: HYDROMORPHONE PCA 10MG/50 ML ( 0.2 MG/ML ) IV PRN (03:00)
[2020-08-21] MEDS: ACETAMINOPHEN 500 MG TABLET PO SCH ×3 (03:03→20:55)
[2020-08-21] MEDS: CEFAZOLIN SODIUM 1 GM VIAL IVP SCH ×3 (03:03→16:08)
[2020-08-21] MEDS: OXYCODONE HCL 5 MG TAB PO PRN ×3 (03:04→20:53)
[2020-08-21] MEDS: 0.9%NACL 1000ML 1,000 ML IV SCH ×2 (05:00→15:00)
[2020-08-21 05:02] LABS: HEMATOCRIT 32.8 % (42-54); MEAN CORPUSCULAR HEMOGLOBIN 27.2 pg (27.0-33.0); MEAN CORPUSCULAR HGB CONC 31.4 g/dL (32.0-36.0); MEAN CORPUSCULAR VOLUME 86.5 fL (79-99); RED BLOOD CELL COUNT(AUTO) 3.79 MIL/uL (4.50-6.20); RED CELL DISTRIBUTION WIDTH 17.9 % (11.0-15.5); WHITE BLOOD COUNT (AUTO) 12.1 K/uL (4.8-10.8)
[2020-08-21 05:17] LABS: CREATININE 1.3 mg/dL (0.5-1.5); POTASSIUM 4.2 mmol/L (3.5-5.1)
[2020-08-21] MEDS ORDERED: NON-FORMULARY MEDICATION 1 EACH (Ferrous Sulfate (Iron) 325 MG) PO SCH (09:00)
[2020-08-21] MEDS ORDERED: BUPROPION HCL 150 MG PO SCH (09:00)
[2020-08-21] MEDS ORDERED: NON-FORMULARY MEDICATION 1 EACH (Multivitamin (Multi Vitamin Daily) 1 EACH) PO SCH (09:00)
[2020-08-21] MEDS ORDERED: NON-FORMULARY MEDICATION 1 EACH (Amlodipine Besylate 10 MG) PO SCH (09:00)
[2020-08-21] MEDS: KETOROLAC 15MG/ML VIAL (15MG/ML) IV PRN ×2 (09:08→19:58)
[2020-08-21] MEDS: CELECOXIB 200 MG CAP PO SCH ×2 (09:10→20:51)
[2020-08-21] MEDS: APIXABAN 5 MG TABLET PO SCH ×2 (09:10→20:51)
[2020-08-21] MEDS: PREGABALIN 25 MG CAP PO SCH ×2 (09:11→20:50)
[2020-08-21] MEDS: DULOXETINE HCL 30 MG CAP PO SCH (09:11)
[2020-08-21] MEDS: BUPROPION HCL 150 MG TABLET.SA PO SCH (09:11)
[2020-08-21] MEDS: MULTIVITAMIN TABLET PO SCH (09:12)
[2020-08-21] MEDS: AMLODIPINE 5 MG TAB PO SCH ×2 (09:12→20:51)
[2020-08-21] MEDS: FAMOTIDINE 20MG TAB PO SCH ×2 (09:12→20:51)
[2020-08-21] MEDS: FERROUS SULFATE 325 MG TABLET.DR PO SCH (09:13)
[2020-08-21] MEDS: POLYETHYLENE GLYCOL 3350 17 GM POWD.PACK PO SCH (09:14)
[2020-08-21] MEDS ORDERED: TAMSULOSIN HCL 0.4 MG CAP.ER.24H ONE (09:22)
[2020-08-21] MEDS: ISOSORBIDE MONO 30MG SR TAB PO SCH (20:52)
[2020-08-21] MEDS: LORAZEPAM 0.5 MG TABLET PO SCH (20:52)
[2020-08-22 00:34] VITALS: BP 116/76
[2020-08-22] MEDS: CEFAZOLIN SODIUM 1 GM VIAL IVP SCH ×3 (01:45→17:04)
[2020-08-22] MEDS: KETOROLAC 15MG/ML VIAL (15MG/ML) IV PRN ×2 (01:55→09:42)
[2020-08-22] MEDS: ACETAMINOPHEN 500 MG TABLET PO SCH ×3 (03:00→16:59)
[2020-08-22 04:39] VITALS: BP 126/75
[2020-08-22] MEDS: OXYCODONE HCL 5 MG TAB PO PRN ×2 (07:50→11:46)
[2020-08-22 08:00] VITALS: BP 125/83
[2020-08-22] MEDS ORDERED: TAMSULOSIN HCL 0.4 MG CAP.ER.24H PO SCH (09:00)
[2020-08-22] MEDS: FAMOTIDINE 20MG TAB PO SCH ×2 (09:27→19:32)
[2020-08-22] MEDS: MULTIVITAMIN TABLET PO SCH (09:27)
[2020-08-22] MEDS: CELECOXIB 200 MG CAP PO SCH ×2 (09:27→19:32)
[2020-08-22] MEDS: APIXABAN 5 MG TABLET PO SCH ×2 (09:29→19:33)
[2020-08-22] MEDS: BUPROPION HCL 150 MG TABLET.SA PO SCH (09:29)
[2020-08-22] MEDS: PREGABALIN 25 MG CAP PO SCH ×2 (09:29→19:33)
[2020-08-22] MEDS: AMLODIPINE 5 MG TAB PO SCH ×2 (09:29→19:31)
[2020-08-22] MEDS: POLYETHYLENE GLYCOL 3350 17 GM POWD.PACK PO SCH (09:30)
[2020-08-22] MEDS: DULOXETINE HCL 30 MG CAP PO SCH (09:30)
[2020-08-22] MEDS: FERROUS SULFATE 325 MG TABLET.DR PO SCH (09:30)
[2020-08-22 12:00] VITALS: BP 130/79
[2020-08-22 16:00] VITALS: BP 97/70
[2020-08-22] MEDS: ISOSORBIDE MONO 30MG SR TAB PO SCH (19:32)
[2020-08-22] MEDS: LORAZEPAM 0.5 MG TABLET PO SCH (19:33)
[2020-08-22 20:00] VITALS: BP 120/83
[2020-08-22] MEDS ORDERED: CEPH500B PO (20:33)
[2020-08-22] MEDS ORDERED: HYDR-4060 PO (20:33)
[2020-08-23] MEDS ORDERED: BISACODYL 10 MG SUPP.RECT RC PRN (19:00)
== END 2020-08-22 21:25 | disposition home health service (06) | DRG 468 ==
LOC: DAHIP 08-20 08:54 → 4AH 08-20 17:51
PROVIDERS: ADMIT Orthopaedic Surgery; ATTEND Orthopaedic Surgery
PROC: 0SPC0JZ Removal of Synthetic Substitute from Right Knee Joint, Open Approach (ICD-10-PCS; 2020-08-20)
PROC: 0SPC0EZ Removal of Articulating Spacer from Right Knee Joint, Open Approach (ICD-10-PCS; principal; 2020-08-20 14:40)
PROC: 0SRC0EZ Replacement of Right Knee Joint with Articulating Spacer, Open Approach (ICD-10-PCS; 2020-08-20 14:40)
PROC: 0SRC0JZ Replacement of Right Knee Joint with Synthetic Substitute, Open Approach (ICD-10-PCS; 2020-08-20 14:40)
DX: T84.53XA Infection and inflammatory reaction due to internal right knee prosthesis, initial encounter (principal); Z20.822 Contact with and (suspected) exposure to COVID-19; D64.9 Anemia, unspecified; Y83.1 Surgical operation with implant of artificial internal device as the cause of abnormal reaction of the patient, or of later complication, without mention of misadventure at the time of the procedure; M21.751 Unequal limb length (acquired), right femur; F43.10 Post-traumatic stress disorder, unspecified; E78.5 Hyperlipidemia, unspecified; I10 Essential (primary) hypertension; K21.9 Gastro-esophageal reflux disease without esophagitis; Z96.652 Presence of left artificial knee joint
CPT/HCPCS: 36415; 73564; 80048; 81001; 85025; 85027; 85610; 86850; 86900; 86901; 86923; 87070; 87076; 87088; 87205; 87641; 88112; 88305; 89051; 93005; 97039; C1713; C1776; G0378; J0330; J0690; J1100; J1885; J2001; J2175; J2250; J2405; J2704; J2710; J2765; J2795; J3010; J3370; J3490; J7120; U0003

== ENCOUNTER 2021-11-29 13:08 | Emergency (ER) | payer OTHER ==
[~2021-11-29] VITALS: Ht 170.2 cm; Wt 74.8 kg
[~2021-11-29 13:08] MED LIST changes: +AMLO-258 PO; +CEPH500B PO; +HYDR-4060 PO
[2021-11-29 13:53] LABS: BASOPHILS % (AUTO) 0.8 % (0.0-5.0); EOSINOPHILS % (AUTO) 2.4 % (0.0-8.0); LYMPHOCYTES % (AUTO) 17.1 % (21.0-51.0); MEAN CORPUSCULAR HEMOGLOBIN 30.6 pg (27.0-33.0); MEAN CORPUSCULAR HGB CONC 34.2 g/dL (32.0-36.0); MEAN CORPUSCULAR VOLUME 89.4 fL (79-99); MONOCYTES % (AUTO) 8.6 % (3.0-13.0); NEUTROPHILS % (AUTO) 70.5 % (40.0-77.0); PLATELET COUNT (AUTO) 190 K/uL (130-400); RED BLOOD CELL COUNT(AUTO) 4.81 MIL/uL (4.50-6.20); RED CELL DISTRIBUTION WIDTH 12.7 % (11.0-15.5); WHITE BLOOD COUNT (AUTO) 8.5 K/uL (4.8-10.8)
[2021-11-29] MEDS ORDERED: ONDANSETRON 4MG INJ IVP ONE (14:00)
[2021-11-29] MEDS ORDERED: 0.9% NACL 500ML IV.SOLN 500 ML IV ONE (14:00)
[2021-11-29] MEDS ORDERED: MORPHINE 2 MG SYG IVP ONE (14:00)
[2021-11-29 14:03] LABS: CREATININE 1.1 mg/dL (0.5-1.5); POTASSIUM 4.2 mmol/L (3.5-5.1)
[2021-11-29 14:08] LABS: ALBUMIN 3.8 g/dL (3.5-5.0); TOTAL PROTEIN, SERUM 7.4 g/dL (6.0-8.3)
[2021-11-29 14:16] LABS: APPEARANCE,URINE CLEAR (CLEAR); BILIRUBIN,URINE NEGATIVE (NEGATIVE); COLOR,URINE YELLOW (YELLOW); GLUCOSE, URINE (UA) NEGATIVE (NEGATIVE); KETONES,URINE 15 mg/dL (NEGATIVE); LEUKOCYTE ESTERASE ,URINE NEGATIVE (NEGATIVE); NITRATE,URINE NEGATIVE (NEGATIVE); OCCULT BLOOD,URINE NEGATIVE (NEGATIVE); PROTEIN,URINE NEGATIVE (NEGATIVE); UROBILINOGEN,URINE 0.2 mg/dL (0.2-1.0)
[2021-11-29] MEDS ORDERED: IOHEXOL 350 MG/ML 100ML INFUS..BTL IV ONE (14:22)
[2021-11-29] MEDS ORDERED: ACET-2079 PO (15:23)
[2021-11-29 15:40] VITALS: BP 133/65
== END 2021-11-29 15:49 | disposition home or self-care (01) ==
LOC: EDH 13:08
DX: R10.32 Left lower quadrant pain (principal); G89.29 Other chronic pain; M54.50 Low back pain, unspecified; E78.00 Pure hypercholesterolemia, unspecified; I10 Essential (primary) hypertension; Z79.01 Long term (current) use of anticoagulants
CPT/HCPCS: 99285; 74177; 96374; 71045; 96375; 82270; 84484; 80053; 83690; 85025; 81003; 36415; 93005; J7040; J2405; Q9967

== ENCOUNTER → 2023-11-18 | Outpatient (CLI) | payer OTHER ==
[~2023-11-18] MED LIST changes: +ACET-2079 PO
[2023-11-18 16:59] LABS: APPEARANCE BODY FLUID BLOODY (CLEAR); COLOR,BODY FLUID RED (LT YELLOW); SPECIMENTYPE,BODY FLUID SYNOVIAL; TOTAL VOLUME,BODY FLUID 6 mL
[2023-11-18 17:07] LABS: BODY FLUID RBC 32705 /cu. mm.; BODY FLUID WBC 96 /cu. mm.
[2023-11-18 17:44] LABS: BF LYMPHOCYTE 82 %; BF TOTAL CELLS COUNTED 100
== END | disposition home or self-care (01) ==
LOC: LAB 15:56
PROVIDERS: ATTEND Nurse Practitioner
DX: M25.461 Effusion, right knee (principal); Z86.14 Personal history of Methicillin resistant Staphylococcus aureus infection
CPT/HCPCS: 87071; 87076; 87205; 89051

== ENCOUNTER 2024-12-16 19:32 | Emergency (ER) | payer OTHER ==
[~2024-12-16] VITALS: Ht 170.2 cm; Wt 77.1 kg
[~2024-12-16 19:32] MED LIST changes: -ACET-2079 PO; +BUPR-49 PO; -BUPR200T34 PO; +CELE-125 PO; -CEPH500B PO; -DULO30CA52 PO; -FERR-82 PO; +HYDR25TA PO; -ISOS30TA92 PO; -LORA0.5T83 PO; +OMEP40CA21 PO; -TAMS-1 PO; +TAMS-55 PO
--- NOTE | 2024-12-16 19:39 | NUR ---
COVID AND FLU SWABS COLLECTED AND SENT
[2024-12-16 20:10] LABS: SARS-CoV-2, RNA, NAAT NEGATIVE SARS CoV-2 (NEGATIVE)
[2024-12-16 20:20] LABS: INFLUENZA TYPE A Negative For Type A (NEGATIVE); INFLUENZA TYPE B Negative For Type B (NEGATIVE)
[2024-12-16] MEDS ORDERED: AMOX1TAB16 PO (20:50)
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
[2024-12-16] MEDS: LIDOCAINE HCL 1% 20 ML VIAL ONE (20:56)
[2024-12-16 21:05] VITALS: BP 127/78; PULSE 78; RESP 16; TEMP 98.6; O2SAT 96
--- NOTE | 2024-12-16 21:11 | HMCIMG ---
EXAM: CR Chest, 1 View. CLINICAL HISTORY: COUGH COMPARISON: None provided. FINDINGS: LUNGS: Airspace opacity in the right lower lobe which is consistent with an infiltrate. Otherwise, clear lungs. PLEURAL SPACES: No pleural effusion or pneumothorax. MEDIASTINUM: Cardiac size and mediastinal contours within normal limits. BONES: No acute osseous abnormality. IMPRESSION: Airspace opacity in the right lower lobe which is consistent with an infiltrate. /[place]
== END 2024-12-16 21:10 | disposition home or self-care (01) ==
LOC: EDH 19:32
DX: J18.9 Pneumonia, unspecified organism (principal); Z20.822 Contact with and (suspected) exposure to COVID-19; E78.00 Pure hypercholesterolemia, unspecified; I10 Essential (primary) hypertension; Z98.890 Other specified postprocedural states
CPT/HCPCS: 99284; 71045; 87635; 87804 ×2; 96372; J0696

== ENCOUNTER → 2024-12-28 | Outpatient (CLI) | payer OTHER ==
[~2024-12-28] MED LIST changes: +AMOX1TAB16 PO
--- NOTE | 2024-12-29 23:23 | HMCIMG ---
EXAM: Nuclear Medicine Gastric Emptying Scan. INDICATION: Nausea. REFERENCE EXAMINATION: Chest X radiograph 12/16/2024. TECHNIQUE: 2.1 mCi of Tc99m sulfur colloid with egg whites, 2 slices of bread/jam, 4 ounces of water. FINDINGS: The transit of radiopharmaceuticals is seen from the stomach into the small bowel. Half gastric emptying is not achieved during the period of study. IMPRESSION: Scintigraphic findings suggest gastroparesis. /[place]
== END | disposition home or self-care (01) ==
LOC: RAH 10:58
PROVIDERS: ATTEND Internal Medicine Gastroenterology
DX: R68.81 Early satiety (principal); R11.0 Nausea
CPT/HCPCS: 78264; A9541